=== PATIENT | female | born 1995 | race Caucasian/White ===

== ENCOUNTER 2016-10-18 23:32 | Outpatient (CLI) | payer OTHER ==
[2016-10-19 01:26] LABS: APPEARANCE,URINE CLOUDY; BILIRUBIN,URINE NEGATIVE (NEGATIVE); GLUCOSE, URINE NEGATIVE (NEGATIVE); KETONES,URINE NEGATIVE (NEGATIVE); LEUKOCYTE ESTERASE,URINE TRACE (NEGATIVE); NITRITE,URINE POSITIVE (NEGATIVE); PROTEIN,URINE 100 mg/dL (NEGATIVE); URINE SPECIFIC GRAVITY 1.027; UROBILINOGEN,URINE NEGATIVE mg/dL (<2.0)
[2016-10-19] MEDS ORDERED: NITROFURANTOIN MONOHYD/M-CRYST 100 MG CAPSULE PO ONE (01:37)
[2016-10-19 01:43] LABS: URINE BARBITURATES SCREEN NEGATIVE; URINE METHADONE SCREEN NEGATIVE; URINE OPIATES LOW NEGATIVE; URINE PHENCYCLIDINE SCREEN NEGATIVE
[2016-10-19] MEDS ORDERED: NITROFURANTOIN MONOHYD/M-CRYST 100 MG CAPSULE ONE (01:45)
--- NOTE | 2016-10-19 04:46 | L&D Flow Sheet ---
LD Flowsheet Datetime Report Generated by CPN: 10/19/2016 04:45 Datetime: 10/19/2016 01:50 Teaching Comments: Patient verbalized understanding of discharge materials, is able to teach back signs and symptoms to report to provider to include contractions that increase in duration/intensity/frequency, suspected SROM, decreased movement, vaginal bleeding that worsens or continues. Patient verbalized understanding of pelvic rest and will bean picker prescription for antibiotics for suspected UTI in the AM. Will increase fluid intake. Will keep scheduled appointment at [facility]. Pt denies any questions or pain at this time. Pt in stable, ambulatory condition. Care relinquished at this time. (Ninfa Du RN) Datetime: 10/19/2016 01:45 Uterine Activity Monitor Mode: External; Palpation (Ninfa Ring, RN) Frequency (min): Irregular (Ninfa Ring, RN) Quality: Mild (Ninfa Ring, RN) Duration (sec): 40-70 (Ninfa Ring, RN) Resting Tone (Palpate): Relaxed (Ninfa Ring, RN) Assessment A Monitor Mode: External US (Ninfa Ring, RN) FHR Baseline Rate : 135 (Ninfa Ring, RN) Variability: Moderate 6-25 bpm (Ninfa Ring, RN) Accelerations: None (Ninfa Ring, RN) Decelerations: None (Ninfa Ring, RN) Patient Care Patient Care Comments: Monitors removed to send patient home. (Ninfa Ring, RN) Datetime: 10/19/2016 01:37 NBP Sys/Enedelia/Mean (mmHg): 98 (QS system process) : 55 (QS system process) : 72 (QS system process) Pulse: 77 (QS system process) Respirations: 20 (Ninfa Ring, RN) Temperature (F): 98.0 (Ninfa Ring, RN) Temperature (C): 36.7 (QS system process) Temperature Route: Oral (Ninfa Ring, RN) Pain Pain Scale: 0 (Ninfa Ring, RN) Pain Presence: None/Denies (Ninfa Ring, RN) Pain Type: N/A (Ninfa Ring, RN) LaborFlag: Antepartum (QS system process) Datetime: 10/19/2016 01:36 Communication Communication: Provider at Bedside; Provider Orders Received (Ninfa Du RN) Communication Comments: Call placed to Dr. Dobson. Report to include toco data, pt denies any pain or contractions at this time, urinalysis and ultrasound results. Orders received to give patient 100 mg macrobid PO now x1, send urine for culture, instruct patient to drink lots of fluids and patient may go home. Provider to call in prescription for possible UTI in AM. (Ninfa Du RN) Datetime: 10/19/2016 01:30 Uterine Activity Monitor Mode: External; Palpation (Ninfa Ring, RN) Frequency (min): Irregular (Ninfa Ring, RN) Quality: Mild (Ninfa Ring, RN) Duration (sec): 40-60 (Ninfa Ring, RN) Duration Criteria: Less than Two 120 Second Contractions (Ninfa Ring, RN) Pattern: Normal: <= 5 Contractions in 10 Minutes (Ninfa Ring, RN) Resting Tone (Palpate): Relaxed (Ninfa Ring, RN) Contraction Comments: Uterine Irritability (Ninfa Ring, RN) Assessment A Monitor Mode: External US (Ninfa Ring, RN) FHR Baseline Rate : 125 (Ninfa Ring, RN) Variability: Moderate 6-25 bpm (Ninfa Ring, RN) Accelerations: 15X15 (Ninfa Ring, RN) Decelerations: None (Ninfa Ring, RN) Datetime: 10/19/2016 01:07 NBP Sys/Enedelia/Mean (mmHg): 112 (QS system process) : 60 (QS system process) : 79 (QS system process) Pulse: 71 (QS system process) LaborFlag: Antepartum (QS system process) Datetime: 10/19/2016 01:04 Patient Care Patient Care Comments: Pt back from u/s (Ninfa Ring, RN) Datetime: 10/19/2016 00:30 Uterine Activity Monitor Mode: External; Palpation (Ninfa Ring, RN) Frequency (min): Irregular (Ninfa Ring, RN) Quality: Mild (Ninfa Ring, RN) Duration (sec): 40-60 (Ninfa Ring, RN) Duration Criteria: Less than Two 120 Second Contractions (Ninfa Ring, RN) Pattern: Normal: <= 5 Contractions in 10 Minutes (Ninfa Ring, RN) Resting Tone (Palpate): Relaxed (Ninfa Ring, RN) Contraction Comments: Uterine Irritability (Ninfa Ring, RN) Assessment A Monitor Mode: External US (Ninfa Ring, RN) FHR Baseline Rate : 135 (Ninfa Ring, RN) Variability: Moderate 6-25 bpm (Ninfa Ring, RN) Accelerations: 15X15 (Ninfa Ring, RN) Decelerations: None (Ninfa Ring, RN) Datetime: 10/19/2016 00:23 Communication Communication: Provider Orders Received; Call/Page Placed to Provider (Ninfa Du RN) Communication Comments: Call placed to Dr. Dobson. Report to include vitals, patient complaint of vaginal bleeding, denies any contractions, small amount of blood visualized on pad, patient states positive movement, FHR and toco data, vitals and no urinalysis results yet as patient did not utilize cup given. Orders received to obtain cervical length with visualization of placenta positioning, obtain urinalysis results and call provider for further orders. (Ninfa Du, HANANE) Datetime: 10/19/2016 00:05 NBP Sys/Enedelia/Mean (mmHg): 106 (QS system process) : 59 (QS system process) : 78 (QS system process) Pulse: 90 (QS system process) LaborFlag: Antepartum (QS system process) Datetime: 10/19/2016 00:03 Pain Pain Scale: 0 (Ninfa Ring, RN) Pain Presence: None/Denies (Ninfa Ring, RN) Pain Type: N/A (Ninfa Ring, RN) Vaginal Exam Membrane Status: Intact (Ninfa Ring, RN) Vaginal Bleeding: Scant (Ninfa Ring, RN) Maternal Assessment Level of Consciousness: Fully Conscious (Ninfa Ring, RN) DTR's/Clonus: DTRs 2+; No Clonus (Ninfa Ring, RN) Headache: Denies (Ninfa Ring, RN) Breath Sounds, Left: Clear and Equal (Ninfa Ring, RN) Breath Sounds, Right: Clear and Equal (Ninfa Ring, RN) Nausea/Vomiting: Denies (Ninfa Ring, RN) RUQ Epigastric Pain: Denies (Ninfa Ring, RN) Teaching Instructional Method: Verbal; Patient Instructed; Verbalized Understanding (Ninfa Ring, RN) Plan of Care: Plan of Care Discussed (Ninfa Du RN) Unit Routine: [place] to Room; Call [place]; Bed; Handwashing; Flu/Illness Precautions; Monitoring; Safety/Fall Risk Prevention; Bathroom Privileges (Ninfa Ring, RN) LaborFlag: Antepartum (QS system process) Datetime: 10/19/2016 00:00 Vital Signs Stage of : Antepartum (Ninfa Ring, RN)
--- NOTE | 2016-10-19 04:46 | L&D General Admission ---
General Admit Datetime Report Generated by CPN: 10/19/2016 04:45 INFORMATION Patient Age: 20 (10/18/2016 23:32:QS system process) EDC: 01/20/2017 00:00 (10/19/2016 00:03:Ninfa Du RN) : 3 (10/19/2016 00:03:Ninfa uD RN) Para: 1 (10/19/2016 01:40:Ninfa Du RN) Para: 1 (10/19/2016 00:03:Ninfa uD RN) Term: 1 (10/19/2016 00:03:Ninfa Du RN) : 0 (10/19/2016 00:03:Ninfa Du RN) Spontaneous Abortions: 1 (10/19/2016 00:03:Ninfa Du RN) Induced Abortions: 0 (10/19/2016 00:03:Ninfa Du RN) Livin (10/19/2016 00:03:Ninfa Du RN) Cesareans: 0 (10/19/2016 00:03:Ninfa Du RN) VBACs: 0 (10/19/2016 00:03:Ninfa Ring RN) Ectopic: 0 (10/19/2016 00:03:Ninfa Ring RN) Multiple Births: 0 (10/19/2016 00:03:Ninfa RingHANANE) Baby, Number in Womb: 1 (10/19/2016 01:40:Ninfa Du RN) Baby, Number in Womb: 1 (10/19/2016 00:03:Ninfa Ring RN) CARE Primary Casing Operator: [facility] (10/19/2016 00:03:Ninfa Du RN) Month of 1st Visit: July (10/19/2016 00:03:Ninfa Du RN) Adequate Care: Yes (10/19/2016 00:03:Ninfa Du RN) Height (in): 63 (10/19/2016 00:17:QS system process) ALLERGIES Medication Allergy: No (10/19/2016 00:03:Ninfa Du RN) Medication Allergies: No Known Allergies (10/19/2016) (10/19/2016 00:16:QS system process) Latex Allergy: No Latex Allergies (10/19/2016 00:03:Ninfa Ring, RN) Food Allergies: Denies (10/19/2016 00:03:Ninfa Ring, RN) Environmental Allergies: Denies (10/19/2016 00:03:Ninfa Ring, RN) COMMUNICATION Primary Language: Amharic (10/19/2016 00:03:Ninfa Ring, RN) Medical Tx Preferred Language: Amharic (10/19/2016 00:03:Ninfa Ring, RN) Communication Barrier(s): None (10/19/2016 00:03:Ninfa Ring, RN) DEMOGRAPHICS Address: [address] [place] [id number] (10/18/2016 23:32:QS system process) Zipcode: [address] (10/18/2016 23:32:QS system process) Home (10/18/2016 23:32:QS system process) SSN: [id number] (10/18/2016 23:32:QS system process) Next of Kin Name: DEB PAGE (10/18/2016 23:32:QS system process) Next of Kin (10/18/2016 23:32:QS system process) Next of Kin Relationship: SPO (10/18/2016 23:32:QS system process) Date of : 1995 (10/18/2016 23:32:QS system process) Marital Status: (10/18/2016 23:32:QS system process) Sex: Female (10/18/2016 23:32:QS system process) Race: (10/18/2016 23:32:QS system process) Ethnicity: Non- or (10/18/2016 23:32:QS system process) Congregation: None (10/18/2016 23:32:QS system process) DRUG AND ALCOHOL USE Alcohol: No (10/19/2016 00:03:Ninfa Ring, RN) Cigarettes: Never Smoker. [id number] (10/19/2016 00:03:Ninfa Ring, RN) Marijuana: No (10/19/2016 00:03:Ninfa Ring, RN) Cocaine: No (10/19/2016 00:03:Ninfa Ring, RN) Other Illicit Drugs: No (10/19/2016 00:03:Ninfa Ring, RN) VACCINE HISTORY Influenza Vaccine: Yes (10/19/2016 00:03:Ninfa Du RN) Influenza Date: 2016 (10/19/2016 00:03:Ninfa Du RN) Pneumococcal Vaccine: No (10/19/2016 00:03:Ninfa Du RN) Tetanus Vaccine: Yes (10/19/2016 00:03:Ninfa Du RN) Tdap Vaccine: Yes (10/19/2016 00:03:Ninfa Du RN) Hepatitis B Vaccine: Yes (10/19/2016 00:03:Ninfa Du RN) Feeding Preference: Breast (10/19/2016 00:03:Ninfa Du RN) Benefit of Breast Feed Discussed: Yes (10/19/2016 00:03:Ninfa Du RN) Circumcision: N/A (10/19/2016 00:03:Ninfa Du RN) Tubal Ligation: No (10/19/2016 00:03:Ninfa Du RN) Tubal Authorization Signed: N/A (10/19/2016 00:03:Ninfa Du RN) Consent: N/A (10/19/2016 00:03:Ninfa Du RN) Consent Signed: N/A (10/19/2016 00:03:Ninfa Du RN) Support Person: Deb Page (10/19/2016 00:03:Ninfa Du RN) Support Person Relationship: (10/19/2016 00:03:Ninfa Du RN) Cultural/Spritual Practice: No (10/19/2016 00:03:Ninfa Du RN) Spir/Cult Dietary Needs: No (10/19/2016 00:03:Ninfa Du RN) LIVING SITUATION/DISCHARGE PLAN Living Arrangements: House (10/19/2016 00:03:Ninfa Du RN) Adequate Access to:: Electric; Heat; Refrigeration; Plumbing/Running water; Phone; Transportation (10/19/2016 00:03:Ninfa Du RN) WIC Program: No (10/19/2016 00:03:Ninfa Du RN) Discharge Weld Technician Person: Deb Page (10/19/2016 00:03:Ninfa Du RN) Person to Help after Discharge: Deb Page (10/19/2016 00:03:Ninfa Du RN) Currently Using Commun Resources: No (10/19/2016 00:03:Ninfa Du RN) Outside Agency/Supervisor Extruding Department: N/A (10/19/2016 00:03:Ninfa Du RN) Car Seat for Discharge: Yes (10/19/2016 00:03:Ninfa Du RN) Adoption Requested: No (10/19/2016 00:03:Ninfa Du RN) Pt Contact w/infant Post : N/A (10/19/2016 00:03:Ninfa Du RN) OB/PREVIOUS HISTORY Previous Procedures: Ultrasound (10/19/2016 00:03:Ninfa Du RN) Current Procedures: Ultrasound (10/19/2016 00:03:Ninfa Du RN) History of Previous : No (10/19/2016 00:03:Ninfa Du RN) History of Gestational Diabetes: No (10/19/2016 00:03:Ninfa Du RN) History of PIH: No (10/19/2016 00:03:Ninfa Du RN) History of Incompetent Cervix: No (10/19/2016 00:03:Ninfa Du RN) History of Placenta Previa/Abrup: No (10/19/2016 00:03:Ninfa Du RN) History of Macrosomia: No (10/19/2016 00:03:Ninfa Du RN) History of IUGR: No (10/19/2016 00:03:Ninfa Du RN) History of Hemorrhage: No (10/19/2016 00:03:Ninfa Du RN) History of Loss/Stillborn: No (10/19/2016 00:03:Ninfa Du RN) History of : No (10/19/2016 00:03:Ninfa Du RN) History of D (Rh) Sensitization: No (10/19/2016 00:03:Ninfa Du RN) History Recurrent Loss/Stillborn: No (10/19/2016 00:03:Ninfa Du RN) History Depression/PP Depression: No (10/19/2016 00:03:Ninfa Du RN) History of Uterine Anomaly/CLYDE: No (10/19/2016 00:03:Ninfa Du RN) History of Infertility: No (10/19/2016 00:03:Nifna Du RN) History of ART Treatment: No (10/19/2016 00:03:Ninfa Du RN) History of CLYDE: No (10/19/2016 00:03:Ninfa Du RN) Comments Obstetrical History: G1: 11/2014 girl @ 39.5 weeks, epidural G2: SAB at around 9 weeks 11/2016 G3: current (10/19/2016 00:03:Ninfa Du RN) MEDICAL HISTORY Med Hx Diabetes: No (10/19/2016 00:03:Ninfa Du RN) Med Hx Hypertension: No (10/19/2016 00:03:Ninfa Du RN) Med Hx Heart Disease: No (10/19/2016 00:03:Ninfa uD RN) Med Hx Autoimmune Disorder: No (10/19/2016 00:03:Ninfa Du RN) Med Hx Kidney Disease/UTI: No (10/19/2016 00:03:Ninfa Du RN) Med Hx Neurologic/Epilepsy: No (10/19/2016 00:03:Ninfa Du RN) Med Hx Psychiatric Disorders: No (10/19/2016 00:03:Ninfa Du RN) Med Hx Hepatitis/Liver Disease: No (10/19/2016 00:03:Ninfa Du RN) Med Hx Varicosities/Phlebitis: No (10/19/2016 00:03:Ninfa Du RN) Med Hx Thyroid Dysfunction: No (10/19/2016 00:03:Ninfa Du RN) Med Hx Trauma/Violence: No (10/19/2016 00:03:Ninfa Du RN) Med Hx Blood Transfusion: No (10/19/2016 00:03:Ninfa Du RN) Med Hx Pulmonary (Asthma,TB): No (10/19/2016 00:03:Ninfa Du RN) Med Hx Breast: No (10/19/2016 00:03:Ninfa Du RN) Med Hx MANUFACTURING ENGINEER CHIEF Surgery: No (10/19/2016 00:03:Ninfa Du RN) Med Hx Hospitalization/Surgery: Yes (10/19/2016 00:03:Ninfa Du RN) Med Hx Anesthetic Complications: No (10/19/2016 00:03:Ninfa Du RN) Med Hx Abnormal Pap Smear: Yes (10/19/2016 00:03:Ninfa Du RN) Other Medical Diseases: No (10/19/2016 00:03:Ninfa Du RN) Med Hx Significant Family Hx: No (10/19/2016 00:03:Ninfa Du RN) Details of Med/Surg Hx: Hospitalized for first baby; abnormal pap this (will repeat ) (10/19/2016 00:03:Ninfa Du RN) INFECTIOUS HISTORY Inf Hx Gonorrhea: No (10/19/2016 00:03:Ninfa Du RN) Inf Hx Chlamydia: No (10/19/2016 00:03:Ninfa Du RN) Inf Hx Syphilis: No (10/19/2016 00:03:Ninfa Du RN) Inf Hx HIV/AIDS: No (10/19/2016 00:03:Ninfa Du RN) Inf Hx Human Papilloma Virus: No (10/19/2016 00:03:Ninfa Du RN) Inf Hx Pt/Partner Genital Herpes: No (10/19/2016 00:03:Ninfa Du RN) Inf Hx Tuberculosis/Exposure: No (10/19/2016 00:03:Ninfa Du RN) Inf Hx Hepatitis B,C: No (10/19/2016 00:03:Ninfa Du RN) Inf Hx Rash or Viral Illness: No (10/19/2016 00:03:Ninfa Du RN) GENETIC HISTORY Gen Hx Age >=35 at CASSIE: No (10/19/2016 00:03:Ninfa Du RN) Gen Hx Thalassemia: No (10/19/2016 00:03:Ninfa Du RN) Gen Hx Congenital Heart Defect: No (10/19/2016 00:03:Ninfa Du RN) Gen Hx Neural Tube Defect: No (10/19/2016 00:03:Ninfa Du RN) Gen Hx Down's Syndrome: No (10/19/2016 00:03:Ninfa Du RN) Gen Hx Steven-Sachs: No (10/19/2016 00:03:Ninfa Du RN) Gen Hx Tonya: No (10/19/2016 00:03:Ninfa Du RN) Gen Hx Familial Dysautonomia: No (10/19/2016 00:03:Ninfa Du RN) Gen Hx Sickle Cell Disease/Trait: No (10/19/2016 00:03:Ninfa Du RN) Gen Hx Hemophilia/Blood Disorder: No (10/19/2016 00:03:Ninfa Du RN) Gen Hx Muscular Dystrophy: No (10/19/2016 00:03:Ninfa Du RN) Gen Hx Cystic Fibrosis: No (10/19/2016 00:03:Ninfa Du RN) Gen Hx Huntingtons Chorea: No (10/19/2016 00:03:Ninaf Du RN) Gen Hx Mental Retardation/Autism: Yes (10/19/2016 00:03:Ninfa Du RN) Gen Hx Tested for Fragile X: No (10/19/2016 00:03:Ninfa Du RN) Gen Hx Other Inher/Chromosomal: No (10/19/2016 00:03:Ninfa Du RN) Gen Hx Maternal Metabolic DO: No (10/19/2016 00:03:Ninfa Du RN) Gen Hx Pt Father or FOB Defect: No (10/19/2016 00:03:Ninfa Du RN) Gen Hx Other Genetic History: No (10/19/2016 00:03:Ninfa Du RN) Gen Hx Drugs/Meds since LMP: Yes (10/19/2016 00:03:Ninfa Du RN) Gen Hx Medications: PNV (10/19/2016 00:03:Ninfa Du RN) Details of Genetic History: Maternal side has 3 cousins with autism (10/19/2016 00:03:Ninfa Du RN)
--- NOTE | 2016-10-19 04:46 | L&D Discharge Summary ---
OB Discharge Summary Datetime Report Generated by CPN: 10/19/2016 04:45 DISCHARGE DIAGNOSIS Diagnosis/Symptoms: Vaginal Bleeding; False Labor Number of Babies in Womb: 1 Parity: 1 DIET/ACTIVITY/RESTRICTIONS Diet: Regular Activity: Normal Activity Activity Restrictions: Nothing in Vagina - [place], Tampons, Douche TEACHING/INSTRUCTIONS/REFERRALS Instructions Given To: Patient Instructions Understood: Patient Verbalized Understanding Referrals: None Educational Materials- Other: - Dehydration - UTI in DISCHARGE INFORMATION Discharged AMA: No Discharge Date/Time: 10/19/2016 01:54 Discharged To: Home Discharge Provider Name: Dr. Dobson Accompanied By: Self Discharge Method: Ambulatory Condition: Stable FOLLOW UP INFORMATION Follow Up With: [facility] Follow Up On: As Scheduled Follow Up Phone Number: [facility] - Comments: Signs and symptoms to report to provider to include contractions that increase in frequency/duration/intensity, decreased movement, suspected SROM, vaginal bleeding like a period. Pt will follow up in office as scheduled and will meat pickler prescription at the pharmacy in the AM.
--- NOTE | 2016-10-19 04:46 | L&D Admission Assessment ---
LD ADM ASMT Datetime Report Generated by CPN: 10/19/2016 04:45 PATIENT ASSESSMENT Assessment Type: Triage (10/19/2016 00:03:Ninfa Ring, RN) WEIGHT Weight (lb): 158 (10/19/2016 00:17:QS system process) Weight (kg): 71.8 (10/19/2016 00:17:QS system process) PAIN Pain Scale: 0 (10/19/2016 01:37:Ninfa Ring, RN) Pain Scale: 0 (10/19/2016 00:03:Ninfa Ring, RN) Pain Presence: None/Denies (10/19/2016 01:37:Ninfa Ring, RN) Pain Presence: None/Denies (10/19/2016 00:03:Ninfa Ring, RN) Pain Type: N/A (10/19/2016 01:37:Ninfa Ring, RN) Pain Type: N/A (10/19/2016 00:03:Ninfa Ring, RN) CONTRACTIONS Frequency (min): Irregular (10/19/2016 01:45:Ninfa Ring, RN) Frequency (min): Irregular (10/19/2016 01:30:Ninfa Ring, RN) Frequency (min): Irregular (10/19/2016 00:30:Ninfa Ring, RN) Duration (sec): 40-70 (10/19/2016 01:45:Ninfa Ring, RN) Duration (sec): 40-60 (10/19/2016 01:30:Ninfa Ring, RN) Duration (sec): 40-60 (10/19/2016 00:30:Ninfa Ring, RN) Quality: Mild (10/19/2016 01:45:Ninfa Ring, RN) Quality: Mild (10/19/2016 01:30:Ninfa Ring, RN) Quality: Mild (10/19/2016 00:30:Ninfa Ring, RN) Pattern: Normal: <= 5 Contractions in 10 Minutes (10/19/2016 01:30:Ninfa Ring, RN) Pattern: Normal: <= 5 Contractions in 10 Minutes (10/19/2016 00:30:Ninfa Ring, RN) Resting Tone [place]: Relaxed (10/19/2016 01:45:Ninfa Ring, RN) Resting Tone [place]: Relaxed (10/19/2016 01:30:Ninfa Ring, RN) Resting Tone [place]: Relaxed (10/19/2016 00:30:Ninfa Ring, RN) Contraction Comments: Uterine Irritability (10/19/2016 01:30:Ninfa Ring, RN) Contraction Comments: Uterine Irritability (10/19/2016 00:30:Ninfa Ring, RN) VAGINAL EXAM Membranes Status: Intact (10/19/2016 00:03:Ninfa Ring, RN) NEURO Level of Consciousness: Fully Conscious (10/19/2016 00:03:Nifna Ring, RN) DTR's/Clonus: DTRs 2+; No Clonus (10/19/2016 00:03:Ninfa Ring, RN) Headache: Denies (10/19/2016 00:03:Ninfa Ring, RN) Dizziness: No (10/19/2016 00:03:Ninfa Ring, RN) Blurred Vision: No (10/19/2016 00:03:Ninfa Ring, RN) Extremity Numbness/Tingling : None (10/19/2016 00:03:Ninfa Ring, RN) Extremity Movement: Full Range of Motion (10/19/2016 00:03:Ninfa Ring, RN) CARDIOVASCULAR Heart Rhythm: Regular (10/19/2016 00:03:Ninfa Ring, RN) Nailbeds: Petty (10/19/2016 00:03:Ninfa Ring, RN) Capillary Refill: Less than 3 Seconds (10/19/2016 00:03:Ninfa Ring, RN) Lower Extremities Edema: None (10/19/2016 00:03:Ninfa Ring, RN) Upper Extremities Edema: None (10/19/2016 00:03:Ninfa Ring, RN) Facial Edema: None (10/19/2016 00:03:Ninfa Ring, RN) Tessa's Sign Left Leg: Negative (10/19/2016 00:03:Ninfa Ring, RN) Tessa's Sign Right Leg: Negative (10/19/2016 00:03:Ninfa Ring, RN) DVT RISK ASSESSMENT DVT Risk Age: Age less than 41 years (10/19/2016 00:03:Ninfa Ring, RN) DVT Risk BMI: BMI<31 (10/19/2016 00:03:Ninfa Ring, RN) DVT Risk Surgery: None Applicable (10/19/2016 00:03:Ninfa Ring, RN) DVT Risk Other: Women Only- or (<1 month) (10/19/2016 00:03:Ninfa Ring, RN) DVT Risk Total: 1 (10/19/2016 00:03:QS system process) DVT Risk Text: Low Risk (<10%) No specific measures, early ambulation (10/19/2016 00:03:QS system process) RESPIRATORY Respiratory Effort: Unlabored; Regular Rhythm; Equal Expansion (10/19/2016 00:03:Ninfa Ring, RN) Breath Sounds, Left: Clear and Equal (10/19/2016 00:03:Ninfa Ring, RN) Breath Sounds, Right: Clear and Equal (10/19/2016 00:03:Ninfa Ring, RN) Cough Productivity: None (10/19/2016 00:03:Ninfa Ring, RN) GASTROINTESTINAL Nausea/Vomiting: Denies (10/19/2016 00:03:Ninfa Ring, RN) Bowel Sounds: Normoactive; All Quadrants (10/19/2016 00:03:Ninfa Ring, RN) RUQ Epigastric Pain: Denies (10/19/2016 00:03:Ninfa Ring, RN) Bowel Patterns: Soft, Formed Stool (10/19/2016 00:03:Ninfa Ring, RN) Hemorrhoids: None (10/19/2016 00:03:Ninfa Ring, RN) Diet Type: Regular diet (10/19/2016 00:03:Ninfa Ring, RN) Last Meal: 10/19/2016 19:00 (10/19/2016 00:03:Ninfa Ring, RN) GENITOURINARY Bladder: Nondistended (10/19/2016 00:03:Ninfa Ring, RN) Frequency of Urination: No (10/19/2016 00:03:Ninfa Ring, RN) Urination Burning: No (10/19/2016 00:03:Ninfa Ring, RN) CVA Tenderness: No (10/19/2016 00:03:Ninfa Ring, RN) Vaginal Bleeding: Small; Bright Red (10/19/2016 00:03:Ninfa Ring, RN) Vaginal Discharge Amount: Small (10/19/2016 00:03:Ninfa Ring, RN) Vaginal Discharge Color: Bloody (10/19/2016 00:03:Ninfa Ring, RN) Vaginal Discharge Odor: Non-Odorous (10/19/2016 00:03:Ninfa Ring, RN) Vaginal Discharge Character: Watery (10/19/2016 00:03:Ninfa Ring, RN) INTEGUMENTARY Skin Color: Normal for Race (10/19/2016 00:03:Ninfa Ring, RN) Skin Temperature: Cool (10/19/2016 00:03:Ninfa Ring, RN) Skin Moisture: Dry (10/19/2016 00:03:Ninfa Ring, RN) Body Piercings/Tattoos: Ears (10/19/2016 00:03:Ninfa Ring, RN) RG SKIN ASSESSMENT Rg Scale Sensory Perception: No Impairment- Responds to verbal commands. Has no sensory deficit which would limit ability to feel or voice pain or discomfort (10/19/2016 00:03:Ninfa Ring, RN) Rg Scale Moisture: Rarely Moist- Skin is usually dry. Linen only requires changing at routine intervals (10/19/2016 00:03:Ninfa Du RN) Rg Scale Activity: Walks Frequently- Walks outside the room at least twice a day and inside room at least every 2 hours during the day. (10/19/2016 00:03:Ninfa Du RN) Rg Scale Mobility: No Limitations- Makes major and frequent changes in position without assistance (10/19/2016 00:03:Ninfa Du RN) Rg Scale Nutrition: Excellent- Eats most of every meal. Never refuses a meal. Usually eats a total of 4 or more servings of meat and dairy products. Occasionally eats between meals. Does not require supplementation (10/19/2016 00:03:Ninfa Du RN) Rg Scale Friction and Shear: No Apparent Problem- Moves in bed and in chair independently and has sufficient muscle strength to lift up completely during move. Maintains good position in bed or chair at all times (10/19/2016 00:03:Ninfa Du RN) Rg Scale Total: 23 (10/19/2016 00:03:QS system process) Rg Scale Risk: No Risk of Pressure Ulcer Noted at this Time (10/19/2016 00:03:QS system process) SUPPORT Emotional State: Calm/Relaxed (10/19/2016 00:03:Ninfa Du RN) SAFETY Call [place] Within Reach: Yes (10/19/2016 00:03:Ninfa Du RN) Side Rails Up: Yes (10/19/2016 00:03:Ninfa Du RN) Bed Wheels Locked: Yes (10/19/2016 00:03:Ninfa Du RN) Arm Bands Present: Yes (10/19/2016 00:03:Ninfa Du RN) Isolation: [place] (10/19/2016 00:03:Ninfa Du RN) FALL SCREEN Fall Risk History of Falling: (0) No (10/19/2016 00:03:Ninfa Du RN) Fall Risk Secondary Diagnosis: (0) No (10/19/2016 00:03:Ninfa Du RN) Fall Risk Ambulatory Aid: (0) None/Bedrest/Wheelchair/Nurse Assist (10/19/2016 00:03:Ninfa Du RN) Fall Risk IV Therapy: (0) No (10/19/2016 00:03:Ninfa Du RN) Fall Risk Gait: (0) Normal/Bedrest/Immobile (10/19/2016 00:03:Ninfa Du RN) Fall Risk Mental Status: (0) Oriented to Own Ability (10/19/2016 00:03:Ninfa Du RN) Fall Risk Score: 0 (10/19/2016 00:03:QS system process) Fall Risk Score Definition: No Risk: No action required (10/19/2016 00:03:QS system process) RECENT TRAVEL/INFECTIOUS DISEASE Recent Exp Communicable Disease: No (10/19/2016 00:03:Ninfa Du RN) Cough or Fever: No (10/19/2016 00:03:Ninfa Du RN) Foreign Travel Past 10 Days: No (10/19/2016 00:03:Ninfa Du RN) Open Wounds or Sores: No (10/19/2016 00:03:Ninfa Du RN) Prior Antibiotic Resistance Tx: No (10/19/2016 00:03:Ninfa Du RN) Cultures Obtained: Not Applicable (10/19/2016 00:03:Ninfa Du RN) Isolation Initiated: No (10/19/2016 00:03:Ninfa Du RN) Pt/Family Education: Handwashing Hygiene (10/19/2016 00:03:Ninfa Du RN) BABY A FHR Baseline Rate (bpm) Baby A: 135 (10/19/2016 01:45:Ninfa Ring, RN) FHR Baseline Rate (bpm) Baby A: 125 (10/19/2016 01:30:Ninfa Du, RN) FHR Baseline Rate (bpm) Baby A: 135 (10/19/2016 00:30:Ninfa Du, RN) Variability Baby A: Moderate 6-25 bpm (10/19/2016 01:45:Ninfa Du, RN) Variability Baby A: Moderate 6-25 bpm (10/19/2016 01:30:Ninfa Du, RN) Variability Baby A: Moderate 6-25 bpm (10/19/2016 00:30:Ninfa Du, RN) Accelerations Baby A: None (10/19/2016 01:45:Ninfa Du, RN) Accelerations Baby A: 15X15 (10/19/2016 01:30:Ninfa Du RN) Accelerations Baby A: 15X15 (10/19/2016 00:30:Ninfa Du, RN) Decelerations Baby A: None (10/19/2016 01:45:Ninfa Du, RN) Decelerations Baby A: None (10/19/2016 01:30:Ninfa Du, RN) Decelerations Baby A: None (10/19/2016 00:30:Ninfa Du, RN)
--- NOTE | 2016-10-19 04:46 | Antepartum Discharge Summary ---
Antepartum DC Datetime Report Generated by CPN: 10/19/2016 04:45 DIET/ACTIVITY/RESTRICTIONS Diet: Regular (10/19/2016 01:40:Ninfa Ring, RN) Activity: Normal Activity (10/19/2016 01:40:Ninfa Ring, RN) Activity Restrictions: Nothing in Vagina - Okay, Tampons, Douche (10/19/2016 01:40:Ninfa Ring, RN) TEACHING/INSTRUCTIONS/REFERRALS Instructions Given To: Patient (10/19/2016 01:40:Ninfa Ring, RN) Instructions Understood: Patient Verbalized Understanding (10/19/2016 01:40:Ninfa Du RN) Referrals: None (10/19/2016 01:40:Ninfa Du RN) Educational Materials- Other: - Dehydration - UTI in (10/19/2016 01:40:Ninfa Du RN) DISCHARGE INFORMATION Discharged AMA: No (10/19/2016 01:40:Ninfa Du RN) Discharge Date/Time: 10/19/2016 01:54 (10/19/2016 01:40:Ninfa Du RN) Discharged To: Home (10/19/2016 01:40:Ninfa Du RN) Discharge Provider Name: Dr. Dobson (10/19/2016 01:40:Ninfa uD RN) Accompanied By: Self (10/19/2016 01:40:Ninfa Du RN) Discharge Method: Ambulatory (10/19/2016 01:40:Ninfa Du RN) Condition: Stable (10/19/2016 01:40:Ninfa Du RN) FOLLOW UP INFORMATION Follow Up With: [facility] (10/19/2016 01:40:Ninfa Du RN) Follow Up On: As Scheduled (10/19/2016 01:40:Ninfa Du RN) Follow Up Phone Number: [facility] - (10/19/2016 01:40:Ninfa Du RN) Comments: Signs and symptoms to report to provider to include contractions that increase in frequency/duration/intensity, decreased movement, suspected SROM, vaginal bleeding like a period. Pt will follow up in office as scheduled and will order picker/assembler prescription at the pharmacy in the AM. (10/19/2016 01:40:Ninfa Du RN)
--- NOTE | 2016-10-19 04:46 | L&D Current Admission ---
Current Admit Datetime Report Generated by CPN: 10/19/2016 04:45 ADMISSION INFORMATION Chief Complaint: Vaginal Bleeding (10/19/2016 00:03:Ninfa Ring, RN)
== END 2016-10-19 01:54 | disposition home or self-care (01) ==
LOC: LC 23:32
PROVIDERS: ATTEND Obstetrics & Gynecology
PROC: 4A1HXCZ Monitoring of Products of Conception, Cardiac Rate, External Approach (ICD-10-PCS; principal; 2016-10-18)
DX: O46.92 Antepartum hemorrhage, unspecified, second trimester (principal); O47.02 False labor before 37 completed weeks of gestation, second trimester; Z3A.26 26 weeks gestation of pregnancy
CPT/HCPCS: 59899; 87086; 87088; 81001; 87186; 80307; 76815; J8499

== ENCOUNTER 2017-01-25 09:43 | Outpatient (CLI) | payer OTHER ==
--- NOTE | 2017-01-25 10:35 | Non Stress Test Report ---
Non Stress Test Datetime Report Generated by CPN: 01/25/2017 10:34 DEMOGRAPHIC EGA NST: 40.5 INDICATION Indication for Study: Ordered by Provider; Other Indication for Study (NST) Other: Post dates MONITORING Monitor Explained: Monitor Explained; Test Explained; Patient Verbalized Understanding Time on Monitor: 01/25/2017 09:56 Time off Monitor: 01/25/2017 10:21 NST Duration: 25 NST INTERVENTIONS NST Interventions: PO Hydration Physician Notified NST: Dr. Tino BABY A: [id number] BABY A Movement : Present Contraction Frequency : Occasional FHR Baseline : 130 Accelerations : 15X15 Decelerations : None Variability : Moderate 6-25bpm NST Review: Meets Criteria for Reactive NST NST Review and Verified By : HANANE Fang Results: Reactive NST REPORT Report Trigger: Send Report
== END 2017-01-25 10:27 | disposition home or self-care (01) ==
LOC: LC 09:43
PROVIDERS: ATTEND Obstetrics & Gynecology
PROC: 4A1HXCZ Monitoring of Products of Conception, Cardiac Rate, External Approach (ICD-10-PCS; principal; 2017-01-25)
DX: O48.0 Post-term pregnancy (principal); Z3A.40 40 weeks gestation of pregnancy
CPT/HCPCS: 59025

== ENCOUNTER 2017-01-28 06:44 | Inpatient (IN) | payer OTHER ==
[2017-01-28] MEDS ORDERED: RINGERS SOLUTION,LACTATED 300 ML IV ONE (07:01)
[2017-01-28] MEDS ORDERED: OXYTOCIN/NORMAL SALINE 1,000 ML IV PRN ×2 (07:01→20:34)
[2017-01-28 07:28] LABS: ABSOLUTE EOSINOPHILS # (AUTO) 0.1 10^3/uL (0.0-0.6); ABSOLUTE LYMPHOCYTES (AUTO) 1.7 10^3/uL (0.5-4.7); ABSOLUTE MONOCYTES (AUTO) 0.5 10^3/uL (0.1-1.4); ABSOLUTE NEUT (AUTO) 4.6 10^3/uL (1.7-8.2); BASOPHILS % (AUTO) 0.3 % (0-2); EOSINOPHILS % (AUTO) 1.7 % (0-6); LYMPHOCYTES % (AUTO) 24.2 % (13-45); MEAN CORPUSCULAR HEMOGLOBIN 28.6 pg (27.0-33.4); MEAN CORPUSCULAR HGB CONC 34.3 g/dL (32.0-36.0); MEAN CORPUSCULAR VOLUME 83 fl (80-97); MONOCYTES % (AUTO) 7.1 % (3-13); RED BLOOD COUNT 3.84 10^6/uL (3.72-5.28); RED CELL DISTRIBUTION WIDTH 13.9 % (11.5-14.0); SEGMENTED NEUTROPHILS % (AUTO) 66.7 % (42-78)
[2017-01-28 07:33] LABS: APPEARANCE,URINE SLIGHTLY-CLOUDY; BILIRUBIN,URINE NEGATIVE (NEGATIVE); GLUCOSE, URINE NEGATIVE (NEGATIVE); KETONES,URINE NEGATIVE (NEGATIVE); LEUKOCYTE ESTERASE,URINE TRACE (NEGATIVE); NITRITE,URINE NEGATIVE (NEGATIVE); PROTEIN,URINE NEGATIVE (NEGATIVE); URINE SPECIFIC GRAVITY 1.019; UROBILINOGEN,URINE NEGATIVE mg/dL (<2.0)
[2017-01-28 07:47] LABS: URINE BARBITURATES SCREEN NEGATIVE; URINE METHADONE SCREEN NEGATIVE; URINE OPIATES LOW NEGATIVE; URINE PHENCYCLIDINE SCREEN NEGATIVE
[2017-01-28] MEDS ORDERED: OXYTOCIN/NORMAL SALINE 20 UNIT/1,000 ML RTUINJ ONE ×2 (08:06→20:48)
[2017-01-28] MEDS: RINGERS SOLUTION,LACTATED 1,000 ML IV PRN ×2 (08:08→23:21)
--- NOTE | 2017-01-28 09:48 | L&D Progress Notes ---
PROGRESS NOTES Datetime Report Generated by CPN: 01/28/2017 09:47 PROGRESS NOTE Impression: Reassuring Heart Rate Procedures: Artificial ROM; Sterile Vag Exam Plan: Continue Present Management; Induction Vital Signs : Reviewed; Within Normal Limits Comment: Comfortable with ctx AROM, clear Continue present mgmt Anticpate VAGINAL EXAM Dilatation: 3 Effacement: 70 Station: -2 Contractions: 2-4 min apart MEMBRANES Membranes: Ruptured Amniotic Fluid Color: Clear FETUS A FHR - Baseline: 125 Monitoring: External US Variability: Moderate 6-25bpm Accelerations: 15X15 Decelerations: None FHR Category: Category I SIGNATURE SIGNATURE: [id number];[id number] SIGNATURE: [id number] Assignment: Gordo Thorpe MD Signature: with User ID: [email or web address] : with User ID: [email or web address]
[2017-01-28] MEDS ORDERED: NALBUPHINE HCL INJ 10 MG/1 ML AMPULE ONE (12:17)
[2017-01-28] MEDS ORDERED: NALBUPHINE HCL INJ 10 MG/1 ML AMPULE INJ ONE (12:24)
[2017-01-28] MEDS ORDERED: BUPIVACAINE HCL 0.25 % INJ/PF (2.5 MG/1 ML) 30 ML VIAL ONE (13:08)
[2017-01-28] MEDS ORDERED: FENTANYL/BUPIVACAINE/NS/PF 200 MCG/100 ML RTUINJ EPI ONE (13:08)
[2017-01-28] MEDS ORDERED: FENTANYL CITRATE INJ/PF 100 MCG/2 ML AMPUL ONE ×2 (13:08→20:47)
[2017-01-28] MEDS ORDERED: PHENYLEPHRINE HCL INJ/PF 10 MG/1 ML SDV ONE (13:08)
[2017-01-28] MEDS ORDERED: EPHEDRINE SULFATE INJ 50 MG/1 ML AMPULE ONE ×2 (13:08→20:48)
[2017-01-28] MEDS ORDERED: LIDOCAINE 1% INJ-PF (10 MG/ML) 30 ML SDV ONE (13:09)
[2017-01-28] MEDS ORDERED: MISOPROSTOL 0.2 MG TABLET ONE (13:09)
--- NOTE | 2017-01-28 14:37 | L&D Progress Notes ---
PROGRESS NOTES Datetime Report Generated by CPN: 01/28/2017 14:37 PROGRESS NOTE Procedures: Scalp Electrode; Sterile Vag Exam Vital Signs : Reviewed Comment: Pt comfortable with epidural FSE placed without difficulty Will continue to monitor VAGINAL EXAM Dilatation: 7 Effacement: 100 Station: 0 Contractions: 2-4 MEMBRANES Membranes: Ruptured Amniotic Fluid Color: Clear FETUS A FHR - Baseline: 115 Monitoring: External US Variability: Moderate 6-25bpm Accelerations: 15X15 Decelerations: Variable FHR Category: Category II FETUS C SIGNATURE: [id number];[id number] Assignment: Gordo Thorpe MD Signature: with User ID: [email or web address] : with User ID: [email or web address]
--- NOTE | 2017-01-28 16:03 | L&D Progress Notes ---
PROGRESS NOTES Datetime Report Generated by CPN: 01/28/2017 16:03 PROGRESS NOTE Impression Other: cat 2 fhts Procedures: Sterile Vag Exam Plan: Continue Present Management Vital Signs : Reviewed Comment: Feeling a little bit of pressure, but comfortable with epidural Continue to monitor VAGINAL EXAM Dilatation: 9 Effacement: 100 Station: 0 Contractions: 2-3 MEMBRANES Membranes: Ruptured Amniotic Fluid Color: Clear FETUS A FHR - Baseline: 110 Monitoring: External US Variability: Moderate 6-25bpm Decelerations: Variable FHR Category: Category II FETUS C SIGNATURE: [id number];[id number] Assignment: Gorod Thorpe MD Signature: with User ID: [email or web address] : with User ID: [email or web address]
[2017-01-28] MEDS ORDERED: DIPHENHYDRAMINE HCL 50 MG/ML VIAL ONE (17:41)
[2017-01-28] MEDS ORDERED: CITRIC ACID/SODIUM CITRATE ORAL SOLN 15 ML UDCUP ONE (20:27)
[2017-01-28] MEDS ORDERED: CEFAZOLIN 2 GM/D5W RTU 2 GM/50 ML RTUPB IV ONE (20:28)
[2017-01-28] MEDS ORDERED: LIDOCAINE 2%/EPINEPHRINE INJ 20 ML VIAL ONE (20:33)
[2017-01-28] MEDS ORDERED: SODIUM BICARBONATE 8.4% INJ 50 MEQ/50 ML DISP.SYRIN ONE (20:33)
[2017-01-28] MEDS ORDERED: SIMETHICONE 80 MG TAB.CHEW PO PRN (20:34)
[2017-01-28] MEDS ORDERED: DIPH/PERTUSS(ACELL)/TETANUS VAC/PF 0.5 ML SYR (>=10YO) IM PRN (20:34)
[2017-01-28] MEDS ORDERED: MEASLES,MUMPS&RUBELLA VACC/PF 0.5 ML VIAL SUBCUT PRN (20:34)
[2017-01-28] MEDS ORDERED: PROMETHAZINE HCL INJ 25 MG/1 ML VIAL IV PRN (20:34)
[2017-01-28] MEDS ORDERED: ACETAMINOPHEN 325 MG TABLET PO PRN (20:34)
[2017-01-28] MEDS ORDERED: OXYCODONE-ACETAMINOPHEN 5-325 MG TABLET PO PRN (20:34)
[2017-01-28] MEDS ORDERED: ACETAMINOPHEN 100 ML IV PRN (20:34)
[2017-01-28] MEDS ORDERED: HYDROMORPHONE HCL INJ/PF 2 MG/ML AMPULE IV PRN (20:34)
[2017-01-28] MEDS ORDERED: FENTANYL CITRATE INJ/PF 250 MCG/5 ML AMPULE ONE (20:47)
[2017-01-28] MEDS ORDERED: KETOROLAC TROMETHAMINE INJ/PF 30 MG/1 ML SDV ONE (20:47)
[2017-01-28] MEDS ORDERED: OXYTOCIN 10 UNIT/ML VIAL ONE (20:47)
[2017-01-28] MEDS ORDERED: ACETAMINOPHEN 100 ML IV ONE (20:48)
[2017-01-28] MEDS ORDERED: ONDANSETRON HCL INJ/PF 4 MG/2 ML SDV ONE ×2 (20:48→21:18)
[2017-01-28] MEDS ORDERED: MIDAZOLAM 2 MG/2 ML INJ ONE (20:48)
[2017-01-28] MEDS ORDERED: LIDOCAINE 2% INJ-PF (20 MG/ML) 10 ML AMPUL ONE (20:49)
--- NOTE | 2017-01-28 21:45 | Operative Report ---
Operative Report DATE OF SURGERY: 01/28/17 PREOPERATIVE DIAGNOSIS: Persistent occiput posterior cephalopelvic disproportion POSTOPERATIVE DIAGNOSIS: Same OPERATION: Primary via low transverse uterine incision SURGEON: ERNESTO CHILDS ANESTHESIA: Epidural TISSUE REMOVED OR ALTERED: Placenta COMPLICATIONS: None ESTIMATED BLOOD LOSS: 350 cc INTRAOPERATIVE FINDINGS: Normal uterus tubes and ovaries, viable female Apgars 9 9 weight 8 lbs. 2 oz. directly OP PROCEDURE: Patient was taken to the OR and placed in supine position after her spinal anesthesia. She is prepared and draped in sterile fashion. Rivera was placed for drainage of the bladder. Low transverse incision was made and carried down the level of the fascia. The fascial incision was made with knife and extended bilaterally with curved Merrill scissors. The fascia was off the rectus muscles using sharp and blunt dissection. The rectus muscles are in the midline. The peritoneum was entered without incident. Bladder blade was placed in uterine segment was identified. A low transverse incision was made creating a bladder flap. Bladder blade was placed low transverse uterine incision was made with the csafe knife and extended with fingertips. The baby was delivered with some fundal pressure. Mouth and nose were suctioned free. The cord was doubly clamped and cut. Baby was passed off to the information writer in attendance. The placenta was manually extracted with trailing membranes. The uterus was externalized wrapped in a moist lap sponge. Uterine contents wiped free. Uterus was closed with a running locking layer of 0 chromic suture using the second layer to imbricate the first completing a double layer closure of the uterus. An Alanna suture of [address] around the left side of the incision to stop small bleeding from the uterine artery. The serosa was closed with a running 2-0 chromic stitch. The pelvis was irrigated and suctioned free of fluid the uterus was replaced in the abdomen. The abdominal wall peritoneum was closed with running 2-0 chromic stitch. Fascia was closed with a running 0 Vicryl in 2 segments. Anastasiia's layer was brought together with 0 plain gut stitch and the skin was closed with running subcuticular 4-0 undyed Vicryl stitch. The wound was dressed mother and baby did well.
--- NOTE | 2017-01-28 23:51 | Admission Physical ---
Datetime Report Generated by CPN: 01/28/2017 23:50 CURRENT ADMISSION Hx Assessment: The History has been Reviewed and is Current Chief Complaint: Scheduled Induction of Labor Indication for Induction: Post Dates Admit Plan: Admit to Unit ALLERGIES Medication Allergies: No Medication Allergies: No Known Allergies (01/28/2017) Medication Allergies: No Known Allergies (10/19/2016) Latex: No Latex Allergies Food Allergies: Denies Environmental Allergies: Denies OBSTETRICAL HISTORY EDC: 01/20/2017 00:00 : 3 Para: 1 Para: 1 Term: 1 : 0 SAB: 1 IAB: 0 Ectopic: 0 Livin Cesareans: 0 VBACs: 0 Multiple Births: 0 Gestational Diabetes: No Rh Sensitization: No Incompetent Cervix: No CLYDE: No Infertility: No ART Treatment: No Uterine Anomaly: No IUGR: No Hx Previous C/S: No Macrosomia: No Hx Loss/Stillborn: No PIH: No Hx : No Placenta Previa/Abruption: No Depression/PP Depression: No PTL/PROM: No Post Hemorrhage: No Current Procedures: Ultrasound Obstetrical History Comments: G1: 11/2014 girl @ 39.5 weeks, epidural G2: SAB at around 9 weeks 11/2016 G3: current SEE RECORDS Alcohol: No Marijuana : No Cocaine: No Other Illicit Drugs: No Cigarettes: Never Smoker. [id number] MEDICAL HISTORY Diabetes: No Blood Transfusion: No Pulmonary Disease (Asthma, TB): No Breast Disease: No Hypertension: No Chair Trimmer Surgery: No Heart Disease: No Hosp/Surgery: Yes Autoimmune Disorder: No Anesthetic Complications: No Kidney Disease: No Abnormal Pap Smear: Yes Neuro/Epilepsy: No Psychiatric Disorders: No Other Medical Diseases: No Hepatitis/Liver Disease: No Significant Family History: No Varicosities/Phlebitis: No Trauma/Violence : No Thyroid Dysfunction: No Medical History Comments: Hospitalized for first baby; abnormal pap this (will repeat ) INFECTIOUS HISTORY Gonorrhea: No Genital Herpes: No Chlamydia: No Tuberculosis: No Syphilis: No Hepatitis: No HIV/AIDS Exposure: No Rash or Viral Illness: No HPV: No PHYSICAL EXAM General: Normal HEENT: Normal Neurologic: Normal Thyroid: Deferred Heart: Normal Lungs: Normal Breast: Normal Back: Normal Abdomen: Normal Genitourinary Exam: Normal Extremities: Normal DTRs: Normal Pelvic Type: Adequate Physical Exam Comments: pelvis proven 7lbs 13 oz Vital Signs: Reviewed VAGINAL EXAM Dilatation: 9 Dilatation: 7 Dilatation: 3 Effacement: 100 Effacement: 100 Effacement: 70 Station: 0 Station: 0 Station: -2 Contraction Comments: 2-3 Contraction Comments: 2-4 Contraction Comments: 2-4 min apart MEMBRANES Membranes: Ruptured Membranes: Ruptured Membranes: Ruptured Amniotic Fluid Color: Clear Amniotic Fluid Color: Clear Amniotic Fluid Color: Clear FETUS A EGA: 41.1 Monitoring: External US FHR- Baseline: 125 Variability: Moderate 6-25bpm Accelerations: 15X15 FHR Category: Category I Presentation: Vertex Admit Comment: Admit to L _ D IOL for postdates GBS neg Pit Pt may have epidural RH negative, received rhogam 10/29 See record for complete medical hx. PLANS FOR LABOR AND DELIVERY Labor and Delivery: None Pain Management: Epidural Feeding Preference: Breast Benefit of Breast Feed Discussed: Yes Circumcision: N/A INFORMED CONSENT Assignment: Gordo Thorpe MD Signature: with User ID: Mariola : with User ID: Mariola
--- NOTE | 2017-01-29 00:38 | Delivery Summary ---
Del Sum A-C Datetime Report Generated by CPN: 01/29/2017 00:38 DELIVERY PERSONNEL DELIVERY PERSONNEL: [id number];[id number];[id number];[id number] Delivery Doctor:: Gordo Thorpe MD Anesthesiologist:: Monica Whitaker MD FORENSIC ANTHROPOLOGIST:: Fab Balderas CRNA Labor and Delivery Nurse:: Dorcas Agosto RNlaw examiner Nurse:: Jalyn Echavarria RN Neonatal Nurse Practitioner:: BRE Stallings Canal Lock Tender Chief Operator/GOVERNOR ASSEMBLER: Orquidea Luo Canal Lock Tender Chief Operator/GOVERNOR ASSEMBLER: ST Zen Additional Personnel: : Kae Maurice CNA MATERNAL INFORMATION Delivery Anesthesia: Epidural Medications After Delivery: Pitocin Drip 20 Units/1000ml NSS Maternal Complications: None LABOR SUMMARY EDC: 01/20/2017 00:00 No. Babies in Womb: 1 Attempted: No Labor Anesthesia: Epidural LABOR INFORMATION Reason for Induction: Post Dates Onset of Labor: 01/28/2017 09:44 Oxytocin: Induction Group B Beta Strep: negative Steroids Given: None Reason Steroids Not Administered: Not Applicable MEMBRANES Membranes Rupture Method: Artificial Rupture of Membranes: 01/28/2017 09:44 Length of Rupture (hr): 11.38 Amniotic Fluid Color: Clear Amniotic Fluid Amount: Small Amniotic Fluid Odor: Normal STAGES OF LABOR Stage 3 hr: 0 Stage 3 min: 0 Total Time in Labor hr: 11 Total Time in Labor min: 23 VAGINAL DELIVERY Episiotomy: None Laceration Extension: N/A Laceration Type: None Laceration Repair: Not Applicable Sponge Count Correct: N/A Sharps Count Correct: N/A CSECTION DELIVERY Primary Indication: Arrest of Descent Secondary Indication: Secondary Arrest of Dilatation CSection Urgency: Non-Scheduled CSection Incidence: Primary Labor: Labor Elective: Nonelective CSection Incision: Lower Uterine Transverse BABY A INFORMATION Infant Delivery Date/Time: 01/28/2017 21:07 Method of Delivery: Born in Route : No : N/A Forceps: N/A Vacuum Extraction: N/A Shoulder Dystocia : No PRESENTATION/POSITION BABY A Presentation: Cephalic Cephalic Presentation: Vertex Vertex Position: OP Breech Presentation: N/A PLACENTA INFORMATION BABY A Placenta Delivery Time : 01/28/2017 21:07 Placenta Method of Delivery: Manual Removal Placenta Status: Delivered SCORES BABY A Heart Rate 1 min: >100 bpm Resp Effort 1 min: Good Cry Reflex Irritability 1 min: Cough or Sneeze or Pulls Away Muscle Tone 1 min: Active Motion Color 1 min: Body Cross Keys, Extremities Blue Resuscitation Effort 1 min: Tactile Stimulation SCORE 1 MIN: 9 Heart Rate 5 min: >100 bpm Resp Effort 5 min: Good Cry Reflex Irritability 5 min: Cough or Sneeze or Pulls Away Muscle Tone 5 min: Active Motion Color 5 min: Body Cross Keys, Extremities Blue Resuscitation Effort 5 min: Tactile Stimulation SCORE 5 MIN: 9 INFANT INFORMATION BABY A Gestational Age at Delivery: 41.1 Gestational Status: Late Term- 41- 41.6 Weeks Infant Outcome : Liveborn Infant Condition : Stable Sex: Female IDENTIFICATION BABY A Infant Verification Date/Time: 01/28/2017 21:16 ID Band Number: [id number] Mother's Name Verified: Yes Infant RN Verifying : Kelly Agosto, RNC Additional Verifying Personnel: Shahana Maurice CNA WEIGHT/LENGTH BABY A Birthweight (gm): 3700 Weight (lb): 8 Weight (oz): 3 Infant Length (in): 21.50 Length (cm): 54.61 CORD INFORMATION BABY A No. Cord Vessels: 3 Cord Blood Taken: Yes-For Eval (Mom's Blood Type - or O+) Suction: Mouth; Nose ASSESSMENT BABY A Skin to Skin: Yes BABY B INFORMATION : N/A
[2017-01-29] MEDS: IBUPROFEN 800 MG TABLET PO SCH ×5 (00:55→23:22)
[2017-01-29] MEDS: OXYCODONE-ACETAMINOPHEN 5-325 MG TABLET PO PRN ×3 (02:10→15:48)
[2017-01-29 07:27] LABS: HEMATOCRIT 23.4 % (36.0-47.0); HGB HCT DIFFERENCE 0.3; MEAN CORPUSCULAR HGB CONC 33.7 g/dL (32.0-36.0); MEAN CORPUSCULAR VOLUME 83 fl (80-97); RED BLOOD COUNT 2.82 10^6/uL (3.72-5.28); RED CELL DISTRIBUTION WIDTH 14.2 % (11.5-14.0); WHITE BLOOD COUNT 13.2 10^3/uL (4.0-10.5)
[2017-01-29 07:35] LABS: HEMOGLOBIN 7.9 g/dL (12.0-15.5)
--- NOTE | 2017-01-29 09:45 | PDOC PROGRESS REPORT ---
Subjective-OB Subjective: Post Delivery Day: 21 year old. Denies any needs at this time Doing well, pain under control, baby in NICU for 24 hours, breast feeding, + gas , taking food well Physical Exam (OB) Vital Signs: Temp Pulse Resp BP Pulse Ox 98.0 F 76 14 96/53 L 100 01/29/17 08:09 01/29/17 08:09 01/29/17 08:09 01/29/17 08:09 01/29/17 08:09 Intake & Output 01/28/17 01/29/17 01/30/17 06:59 06:59 06:59 Output Total 500 Balance -500 Weight 80.15 kg - Dressing Removed: No - Opsite Incision: Dressing - Lochia Lochia Amount: Scant < 10 ml Lochia Color: Rubra/Red - Abdomen Description: Soft, Round Hernia Present: No Fundal Description: Firm, Midline Fundal Height: u/u - u/2 Objective-Diagnostic Laboratory: 01/29/17 06:28 01/29/17 06:28 WBC 13.2 H RBC 2.82 L Hgb 7.9 L D Hct 23.4 L MCV 83 MCH 28.0 MCHC 33.7 RDW 14.2 H Plt Count 168 Assessment and Plan(PN) - Assessment and Plan (1) Delivery by section of full-term infant Is this a current diagnosis for this admission?: Yes (2) Anemia Qualifiers: Anemia type: iron deficiency Is this a current diagnosis for this admission?: Yes - Time Spent with Patient Time with patient: Less than 15 minutes Medications reviewed and adjusted accordingly: Yes - Disposition Anticipated Discharge: Home Within: within 48 hours
[2017-01-29] MEDS: DOCUSATE SODIUM 100 MG CAPSULE PO SCH ×2 (09:52→18:21)
[2017-01-29] MEDS: PRENATAL VITAMIN W-O CA NO5/FE FUMARATE/FA CAPSULE PO SCH (09:52)
[2017-01-30] MEDS: IBUPROFEN 800 MG TABLET PO SCH ×3 (05:07→18:14)
[2017-01-30] MEDS: PRENATAL VITAMIN W-O CA NO5/FE FUMARATE/FA CAPSULE PO SCH (09:32)
[2017-01-30] MEDS: DOCUSATE SODIUM 100 MG CAPSULE PO SCH ×2 (09:32→18:14)
--- NOTE | 2017-01-30 12:30 | PDOC DISCHARGE SUMMARY ---
Final Diagnosis Discharge Date: 01/30/17 - Final Diagnosis (1) Delivery by section of full-term infant Is this a current diagnosis for this admission?: Yes (2) Anemia Is this a current diagnosis for this admission?: Yes Discharge Data - Discharge Medication Home Medications: Vit/Iron Fumarate/FA [ Tablet] 1 each PO DAILY 10/19/16 Docusate Sodium [Colace 100 mg Capsule] 100 mg PO BID #60 capsule 01/30/17 Ferrous Sulfate [Feosol 325 mg Tablet] 325 mg PO BID #60 tablet 01/30/17 Ibuprofen [Motrin 800 mg Tablet] 800 mg PO Q8HP PRN #90 tablet 01/30/17 Oxycodone HCl/Acetaminophen [Percocet 5-325 mg Tablet] 1 tab PO Q4HP PRN #30 tablet 01/30/17 Reason(s) for Admission: Induction of Labor Procedures: NST, Ultrasound Intrapartum Procedure(s): : Low Cervical, Transverse - Diagnosis Test Laboratory: Temp Pulse Resp BP Pulse Ox 98.3 F 73 15 115/51 L 96 01/30/17 08:01 01/30/17 08:01 01/30/17 08:01 01/30/17 08:01 01/30/17 08:01 01/28/17 01/28/17 01/29/17 07:03 07:16 06:28 RBC 3.84 2.82 L Hgb 11.0 L 7.9 L D Hct 32.0 L 23.4 L Urine Opiates Screen NEGATIVE - Discharge information/Instructions Discharge Activity: Activity As Tolerated, Balance Activity w/Rest, No Driving, No Lifting Over 10 Pounds, No Lifting/Push/Pulling, Pelvic Rest, Slowly Increase Activity, No tub bath, Walk Frequently Discharge Diet: Regular Disposition: HOME, SELF-CARE Follow up with: [facility] in: 1, Weeks - incision check
[2017-01-30 20:39] VITALS: BP 122/62
== END 2017-01-30 21:25 | disposition home or self-care (01) | DRG 766 ==
LOC: LR 06:44 → 2S 23:49
PROVIDERS: ADMIT Obstetrics & Gynecology; ATTEND Obstetrics & Gynecology
PROC: 10D00Z1 Extraction of Products of Conception, Low, Open Approach (ICD-10-PCS; principal; 2017-01-28)
PROC: 3E0P7GC Introduction of Other Therapeutic Substance into Female Reproductive, Via Natural or Artificial Opening (ICD-10-PCS; 2017-01-28)
PROC: 4A1HXCZ Monitoring of Products of Conception, Cardiac Rate, External Approach (ICD-10-PCS; 2017-01-28)
PROC: 4A1H7CZ Monitoring of Products of Conception, Cardiac Rate, Via Natural or Artificial Opening (ICD-10-PCS; 2017-01-28)
PROC: 10H073Z Insertion of Monitoring Electrode into Products of Conception, Via Natural or Artificial Opening (ICD-10-PCS; 2017-01-28)
PROC: 3E0234Z Introduction of Serum, Toxoid and Vaccine into Muscle, Percutaneous Approach (ICD-10-PCS; 2017-01-29)
DX: O64.0XX0 Obstructed labor due to incomplete rotation of fetal head, not applicable or unspecified (principal); O48.0 Post-term pregnancy; O26.893 Other specified pregnancy related conditions, third trimester; O65.9 Obstructed labor due to maternal pelvic abnormality, unspecified; O62.1 Secondary uterine inertia; Z67.41 Type O blood, Rh negative; Z3A.41 41 weeks gestation of pregnancy; Z37.0 Single live birth
CPT/HCPCS: 1961; 36415; 80307; 81005; 85025; 85027; 85461; 86592; 86850; 86900; 86901; 94799; J0131; J0690; J1200; J1885; J2250; J2300; J2370; J2405; J2590; J2790; J3010; J3490